=== PATIENT | female | born 1970 | race Caucasian/White ===

== ENCOUNTER 2017-05-14 07:14 | Emergency (ER) | payer OTHER ==
[~2017-05-14] VITALS: Ht 157.5 cm; Wt 105.2 kg
[~2017-05-14 07:14] MED LIST: ALBI30PE; ALP5 PO; ALPR-429 PO; AMIT-106 PO; ASPI1TAB35 PO; AZI250 PO; BACL-1 PO; CALC-515 PO; CLON1PAT31 TD; CYCL10TA29 PO; DAR100 PO; DEXL60CA6 PO; ESOM40CA42 PO; FAMO-1 PO; GABA-490 PO; GABA-549 PO; HYDR-385 PO; HYDR12.556 PO; HYDR2TAB74 PO; HYDR473S4 PO; IBU800 PO; IBUP-1618 PO; INSU100I30 SQ; LANI SUBQ; LIS5 PO; LISI2.5T60 PO; LOR5 PO; MAX75 PO; MEP50; MEPE100T3 PO; MEPE50TA29 PO; META800T18 PO; METF-420 PO; METO5TAB75 PO; NIT4 SL; OXYC-865 PO; OXYC1TAB54 PO; PER PO; PRE10 PO; PREDNISONE; PRO25 PO; PROM-110 PO; RIZA10TA20 PO; TRA50 PO; VAL80 PO; VALS1TAB96 PO; [UNRECOGNIZED DRUG - OTHER]
--- NOTE | 2017-05-14 07:27 | ER Report ---
History and Physical Time Seen By MD: 07:26 Hx. of Stated Complaint: COUGH, SORE THROAT, BODY ACHES FOR A WEEK HPI/ROS CC: Fever, body aches, cough HPI: 47-year-old female with a past medical history muscle strain, ROS: 12 point review of systems essentially negative other than what's mentioned in history of present illness. NURSES AND OLD MEDICAL RECORDS: Reviewed PMH: Reviewed SURGICAL HX: Reviewed FAMILY HX: Noncontributory SOCIAL HX: [] VITAL SIGNS: Reviewed CONSTITUTIONAL: [] PHYSICAL EXAM: HEENT: Pupils equal round reactive to light and accommodate, EOMI, tympanic membranes pearly white umbo present with good light reflex. Lips dry mucous membranes moist gums nonbleeding uvula midline and rises equally with phonation, oropharynx noninjected, teeth intact. NECK: Neck supple, thyroid not appreciated, anterior and posterior cervical lymphadenopathy not appreciated. Trachea midline and rises equally with phonation. CARDIAC: S1-S2 regular rate rhythm no murmurs rubs or gallops. LUNGS: Lungs clear bilaterally posteriorly in all prasad. Good air movement. ABDOMEN: Abdomen soft, nondistended, bowel sounds active in all 4 quadrants, no bruits noted, no CVA tenderness. MUSCULOSKELETAL: Strength 5 out of 5 x 4 extremities, no deformities noted. NEUROLOGIC: Patient alert and oriented by 3 Allergies: Coded Allergies: albumin human (Verified Allergy, Severe, UNABLE TO FUNCTION, 05/14/17) amoxicillin (Verified Allergy, Severe, HIVES, THROAT SWELLING, 05/14/17) interferon beta-1a (Verified Allergy, Severe, UNABLE TO FUNCTION, 05/14/17) codeine (Verified Allergy, Intermediate, MIGRAINE, 05/14/17) glatiramer (copolymer 1) (Verified Allergy, Intermediate, RASH, 05/14/17) hydrocodone (Verified Allergy, Intermediate, HEADACHE, 05/14/17) Uncoded Allergies: STEROIDS (Allergy, Severe, CHEST PAIN, 06/01/08) Home Meds Active Scripts Ipratropium/Albuterol Sulfate (COMBIVENT RESPIMAT INHAL SPRAY) 4 Gm Aer.w.adap, 1 EACH IH QID, #1 INSERT Prov:ANDREA TAYLOR MD 05/14/17 Levofloxacin 750 Mg Tab (LEVAQUIN 750 MG TAB) 750 Mg Tablet, 750 MG PO QDAY for 10 Days, TAB Prov:ANDREA TAYLOR MD 05/14/17 Oxycodone Hcl/Acetaminophen (PERCOCET 5-325 MG TABLET) 1 Each Tablet, 1 EACH PO Q6-8H, #14 Prov:YUKO HUANG DO 06/21/15 Reported Medications Insulin Glargine,Hum.rec.anlog (LANTUS SOLOSTAR) 100 Unit/1 Ml Insuln.pen, 35 UNITS SQ DAILY, #15 12/30/15 Lisinopril (LISINOPRIL) 2.5 Mg Tablet, 2.5 MG PO QDAY 06/21/15 Hydrochlorothiazide (HYDROCHLOROTHIAZIDE) 12.5 Mg Capsule, 1 TAB PO QDAY, CAPSULE 06/21/15 Insulin Glargine (LANTUS) 100 Unit/Ml Soln, 35 UNIT SUBQ DAILY 04/02/14 Dexlansoprazole (DEXILANT) 60 Mg Stuart., 60 MG PO DAILY 01/31/14 Baclofen (BACLOFEN) 10 Mg Tablet, 10 MG PO TID, #30 TAB 01/17/14 Discontinued Scripts Oxycodone Hcl/Acetaminophen (PERCOCET 5-325 MG TABLET) 1 Each Tablet, 1 EACH PO Q4-6H Y for PAIN, #20 TAB Prov:VIOLET STEWART 04/13/16 Hx Smoking: No Smoking Status: Never Smoker Exposure to Second Hand Smoke?: No Hx Substance Use Disorder: No Hx Alcohol Use: No Constitutional Vital Sign - Last 24 Hours 05/14/17 05/14/17 05/14/17 05/14/17 07:19 07:30 07:45 07:48 Temp 97.7 Pulse 106 108 95 97 Resp 18 16 B/P (MAP) 224/160 209/130 (156) Pulse Ox 94 94 96 O2 Delivery Room Air 05/14/17 05/14/17 05/14/17 05/14/17 07:48 07:55 08:00 08:15 Pulse 98 86 Resp 16 B/P (MAP) 185/114 (137) 178/108 (131) Pulse Ox 95 94 93 O2 Delivery Room Air 05/14/17 05/14/17 05/14/17 05/14/17 08:38 08:45 09:00 09:13 Pulse 95 80 Resp 20 14 B/P (MAP) 194/100 (131) 186/109 (134) 180/108 (132) 169/109 (129) Pulse Ox 95 96 05/14/17 05/14/17 09:15 09:30 Pulse 79 71 Resp 9 9 B/P (MAP) 161/99 (119) 175/131 (146) Pulse Ox 92 91 Medical Decision Making Data Points Result Diagram: 05/14/17 0756 05/14/17 0756 Laboratory Hematology Test 05/14/17 07:21 05/14/17 07:56 05/14/17 08:39 Influenza Type A Antigen Negative (NEGATIVE) Influenza Type B Antigen Negative (NEGATIVE) Group A Streptococcus Screen Negative (NEGATIVE) Red Blood Count 5.50 M/uL (4.17-5.56) Mean Corpuscular Volume 83.5 fL (80.0-96.0) Mean Corpuscular Hemoglobin 29.8 pg (26.0-33.0) Mean Corpuscular Hemoglobin Concent 35.6 g/dL (32.0-36.0) Red Cell Distribution Width 12.1 % (11.5-14.5) Mean Platelet Volume 7.4 fL (7.2-11.1) Neutrophils (%) (Auto) 55.5 % (39.4-72.5) Lymphocytes (%) (Auto) 31.7 % (17.6-49.6) Monocytes (%) (Auto) 6.3 % (4.1-12.4) Eosinophils (%) (Auto) 6.1 % (0.4-6.7) Basophils (%) (Auto) 0.4 % (0.3-1.4) Nucleated RBC Relative Count (auto) 0.2 /100WBC Neutrophils # (Auto) 3.5 K/uL (2.0-7.4) Lymphocytes # (Auto) 2.0 K/uL (1.3-3.6) Monocytes # (Auto) 0.4 K/uL (0.3-1.0) Eosinophils # (Auto) 0.4 K/uL (0.0-0.5) Basophils # (Auto) 0.0 K/uL (0.0-0.1) Nucleated RBC Absolute Count (auto) 0.02 K/uL Erythrocyte Sedimentation Rate 12 mm/HOUR (0-20) Sodium Level 138 mmol/L (137-145) Potassium Level 4.1 mmol/L (3.5-5.0) Chloride Level 103 mmol/L (98-107) Carbon Dioxide Level 25 mmol/L (22-31) Blood Urea Nitrogen 10 mg/dl (7-18) Creatinine 0.60 mg/dl (0.52-1.04) Glomerular Filtration Rate Calc > 60.0 Random Glucose 202 mg/dl (75-110) Calcium Level 9.1 mg/dl (8.4-10.2) Total Bilirubin 1.2 mg/dl (0.2-1.3) Aspartate Amino Transf (AST/SGOT) 29 U/L (0-35) Alanine Aminotransferase (ALT/SGPT) 52 U/L (0-56) Alkaline Phosphatase 130 U/L (0-126) C-Reactive Protein 0.6 mg/dl (<1.0) B-Type Natriuretic Peptide 52 pg/ml (0-100) Total Protein 7.4 gm/dl (6.3-8.2) Albumin 3.9 g/dl (3.5-5.0) Urine Color Straw Urine Clarity Clear Urine pH 5.0 pH (4.8-9.5) Urine Specific [place] 1.005 Urine Protein Negative mg/dL (NEGATIVE) Urine Glucose (UA) 50 mg/dL (NEGATIVE) Urine Ketones Negative mg/dL (NEGATIVE) Urine Blood Negative (NEGATIVE) Urine Nitrite Negative (NEGATIVE) Urine Bilirubin Negative (NEGATIVE) Urine Urobilinogen Negative mg/dL (0.2-1.9) Urine Leukocyte Esterase Negative (NEGATIVE) Urine RBC None /HPF (0-2/HPF) Urine WBC <1 /HPF (0-5/HPF) Urine Squamous Epithelial Cells Many /LPF (</=FEW) Urine Bacteria Few /HPF (NONE-FEW) Urine Mucus None /HPF (NONE-FEW) Urine HCG, Qualitative Negative (NEGATIVE) Chemistry Test 05/14/17 07:21 05/14/17 07:56 05/14/17 08:39 Influenza Type A Antigen Negative (NEGATIVE) Influenza Type B Antigen Negative (NEGATIVE) Group A Streptococcus Screen Negative (NEGATIVE) White Blood Count 6.4 k/uL (4.5-11.0) Red Blood Count 5.50 M/uL (4.17-5.56) Hemoglobin 16.4 g/dL (12.0-16.0) Hematocrit 45.9 % (34.0-47.0) Mean Corpuscular Volume 83.5 fL (80.0-96.0) Mean Corpuscular Hemoglobin 29.8 pg (26.0-33.0) Mean Corpuscular Hemoglobin Concent 35.6 g/dL (32.0-36.0) Red Cell Distribution Width 12.1 % (11.5-14.5) Platelet Count 244 K/uL (150-450) Mean Platelet Volume 7.4 fL (7.2-11.1) Neutrophils (%) (Auto) 55.5 % (39.4-72.5) Lymphocytes (%) (Auto) 31.7 % (17.6-49.6) Monocytes (%) (Auto) 6.3 % (4.1-12.4) Eosinophils (%) (Auto) 6.1 % (0.4-6.7) Basophils (%) (Auto) 0.4 % (0.3-1.4) Nucleated RBC Relative Count (auto) 0.2 /100WBC Neutrophils # (Auto) 3.5 K/uL (2.0-7.4) Lymphocytes # (Auto) 2.0 K/uL (1.3-3.6) Monocytes # (Auto) 0.4 K/uL (0.3-1.0) Eosinophils # (Auto) 0.4 K/uL (0.0-0.5) Basophils # (Auto) 0.0 K/uL (0.0-0.1) Nucleated RBC Absolute Count (auto) 0.02 K/uL Erythrocyte Sedimentation Rate 12 mm/HOUR (0-20) Glomerular Filtration Rate Calc > 60.0 Calcium Level 9.1 mg/dl (8.4-10.2) Total Bilirubin 1.2 mg/dl (0.2-1.3) Aspartate Amino Transf (AST/SGOT) 29 U/L (0-35) Alanine Aminotransferase (ALT/SGPT) 52 U/L (0-56) Alkaline Phosphatase 130 U/L (0-126) C-Reactive Protein 0.6 mg/dl (<1.0) B-Type Natriuretic Peptide 52 pg/ml (0-100) Total Protein 7.4 gm/dl (6.3-8.2) Albumin 3.9 g/dl (3.5-5.0) Urine Color Straw Urine Clarity Clear Urine pH 5.0 pH (4.8-9.5) Urine Specific [place] 1.005 Urine Protein Negative mg/dL (NEGATIVE) Urine Glucose (UA) 50 mg/dL (NEGATIVE) Urine Ketones Negative mg/dL (NEGATIVE) Urine Blood Negative (NEGATIVE) Urine Nitrite Negative (NEGATIVE) Urine Bilirubin Negative (NEGATIVE) Urine Urobilinogen Negative mg/dL (0.2-1.9) Urine Leukocyte Esterase Negative (NEGATIVE) Urine RBC None /HPF (0-2/HPF) Urine WBC <1 /HPF (0-5/HPF) Urine Squamous Epithelial Cells Many /LPF (</=FEW) Urine Bacteria Few /HPF (NONE-FEW) Urine Mucus None /HPF (NONE-FEW) Urine HCG, Qualitative Negative (NEGATIVE) Urinalysis Test 05/14/17 08:39 Urine Color Straw Urine Clarity Clear Urine pH 5.0 pH (4.8-9.5) Urine Specific [place] 1.005 Urine Protein Negative mg/dL (NEGATIVE) Urine Glucose (UA) 50 mg/dL (NEGATIVE) Urine Ketones Negative mg/dL (NEGATIVE) Urine Blood Negative (NEGATIVE) Urine Nitrite Negative (NEGATIVE) Urine Bilirubin Negative (NEGATIVE) Urine Urobilinogen Negative mg/dL (0.2-1.9) Urine Leukocyte Esterase Negative (NEGATIVE) Urine RBC None /HPF (0-2/HPF) Urine WBC <1 /HPF (0-5/HPF) Urine Squamous Epithelial Cells Many /LPF (</=FEW) Urine Bacteria Few /HPF (NONE-FEW) Urine Mucus None /HPF (NONE-FEW) Urine HCG, Qualitative Negative (NEGATIVE) Microbiology Microbiology Date/Time Source Procedure Growth Status 05/14/17 08:28 Blood Peripheral Draw Blood Culture - Preliminary NO GROWTH SO FAR, SET LATE. REINCUBATED Resulted 05/14/17 07:56 Blood Blood Culture - Preliminary NO GROWTH SO FAR, SET LATE. REINCUBATED Resulted EKG/Imaging Imaging Chest x-ray: IMPRESSION: 1. Negative chest for acute cardiopulmonary disease ED Course/Re-evaluation ED Course Patient received Decadron 10 mg by mouth. Chest x-ray did not show any infiltrates or consolidations. Patient does have a slight decrease with SaO2 on room air. Patient will be placed on Levaquin. She is diabetic and therefore I cannot place her on steroids long-term. Patient has been having bodyaches and a sinus congestion. She is allergic to penicillins and I'm afraid that doxycycline would also cause GI upset. Patient will be placed on Levaquin. Patient was hypertensive with a systolic blood pressure of greater than 220 mmHg. Patient received clonidine 0.2 mg twice. She also received lisinopril 10 mg by mouth. I discussed with her to take a blood pressure diary 3 times a day for 2 weeks and given to her PCP. She made need to increase her lisinopril and hydrochlorothiazide. She is only on 10 mg of lisinopril daily. It may be elevated secondary to her infection and therefore her blood pressure needs to be monitored over a 2 week period. Patient will plan and in agreement. Re-evaluation Medical decision-making includes but not expected to Sinusitis causing hypertension, uncontrolled hypertension, diabetes, renal artery stenosis. Decision to Disposition Date: May 14, 2017 Decision to Disposition Time: 10:04 Depart Departure Latest Vital Signs Vital Signs Date Time Temp Pulse Resp B/P (MAP) Pulse Ox O2 Delivery O2 Flow Rate FiO2 05/14/17 09:30 71 9 175/131 (146) 91 05/14/17 07:48 Room Air 05/14/17 07:19 97.7 Impression: Primary Impression: Sinusitis Additional Impression: Hypertension Condition: Improved Disposition: HOME OR SELF-CARE Referrals: MELO GUNTER (PCP) New Scripts Ipratropium/Albuterol Sulfate (COMBIVENT RESPIMAT INHAL SPRAY) 4 Gm Aer.w.adap 1 EACH IH QID, #1 INSERT Prov: ANDREA TAYLOR MD 05/14/17 Levofloxacin 750 Mg Tab (LEVAQUIN 750 MG TAB) 750 Mg Tablet 750 MG PO QDAY for 10 Days, TAB Prov: ANDREA TAYLOR MD 05/14/17 Patient Instructions: Hypertension (ED), Sinusitis (ED) Additional Instructions: You have been given Levaquin take as directed. Do not lift heavy objects while on Levaquin. He may have tendon rupture especially any Achilles tendon while on Levaquin. He has been given Combivent to use as directed. Given shown in the emergency department how to use your inhaler. Follow-up with your regular doctor for hypertension. Pressure at least twice a day at the same time for 2 weeks and recorded given it to your physician under next visit. I and the staff wanted to thank you for allowing us to take care of your needs today in the emergency department at [facility]. We have tried to answer all of your questions and concerns. Please feel free to return to the emergency department for any further concerns or unanswered questions. Problem Qualifiers Primary Impression: Sinusitis Sinusitis location: maxillary Chronicity: acute Recurrence: not specified as recurrent Qualified Codes: J01.00 - Acute maxillary sinusitis, unspecified Additional Impression: Hypertension Hypertension type: unspecified Qualified Codes: I10 - Essential (primary) hypertension ANDREA TAYLOR MD May 14, 2017 07:27
[2017-05-14] MEDS ORDERED: NS(*) 0.9% 1000 ML BAG 1,000 ML IV ONE (07:33)
[2017-05-14] MEDS ORDERED: methylPREDNIS SUCC 125 MG/2ML IVP ONE (07:35)
[2017-05-14] MEDS ORDERED: cloNIDine HCL 0.1 MG TAB PO ONE ×2 (07:35→08:50)
[2017-05-14] MEDS ORDERED: ACETAMINOPHEN 325 MG TAB PO ONE (07:35)
[2017-05-14] MEDS ORDERED: ALBUTEROL/IPRATROPIUM 3 ML NEB NEB ONE (07:35)
--- NOTE | 2017-05-14 07:59 | RADIOLOGY IMAGING REPORT ---
FACILITY: [facility] [place]IENT NAME: Velia Hoffmann : 1970 MR: [id number] V: [id number] EXAM DATE: ORDERING PHYSICIAN: ANDREA TAYLOR TECHNOLOGIST: Location: [facility] - [place] Patient: Velia Hoffmann : 1970 Visit/Account:[id number] Date of Sevice: 05/14/2017 CHEST PA AND LAT Additional pertinent History: Cough congestion COMPARISON STUDIES: none FINDINGS: Support lines and catheters: None Lungs and Pleura: Lung prasad well expanded with no infiltrates or consolidations. No parenchymal ma ss lesions are seen. There are no effusions Heart and vasculature: Negative. Amanda and Mediastinum: Negative. Bones and Chest wall: Negative. Upper Abdomen: Negative. IMPRESSION: 1. Negative chest for acute cardiopulmonary disease Report Dictated By: Donny Griffiths MD at 05/14/2017 7:54 AM Report E-Signed By: Donny Griffiths MD at 05/14/2017 7:55 AM WSN:[id number]
[2017-05-14 08:11] LABS: PLATELET COUNT, AUTOMATED 244 K/uL (150-450)
[2017-05-14] MEDS ORDERED: LISINOPRIL 10 MG TAB PO ONE (09:05)
[2017-05-14] MEDS ORDERED: LEVO750T44 PO (10:08)
[2017-05-14] MEDS ORDERED: IPRA4AER IH (10:08)
[2017-05-14 10:15] VITALS: BP 153/92
== END 2017-05-14 10:24 | disposition home or self-care (01) ==
LOC: ER 07:15
DX: J01.00 Acute maxillary sinusitis, unspecified (principal); I10 Essential (primary) hypertension
CPT/HCPCS: 36415; 71046; 81001; 81025; 83880; 85025; 85651; 86140; 87040; 87081; 87502; 87880; 94640; 96361; 96374; 99284; J2930; J7030; J7620; 82040; 82247; 82310; 82374; 82435; 82565; 82947; 84075; 84132; 84155; 84295; 84450; 84460; 84520

== ENCOUNTER → 2017-06-08 | Outpatient (CLI) | payer OTHER ==
[~2017-06-08] MED LIST changes: +IPRA4AER IH; +LEVO750T44 PO
== END ==
LOC: LAB 13:23
PROVIDERS: ATTEND Nurse Practitioner Family
DX: R07.0 Pain in throat (principal); Z20.828 Contact with and (suspected) exposure to other viral communicable diseases
CPT/HCPCS: 87081; 87502; 87880

== ENCOUNTER → 2017-07-29 | Outpatient (CLI) | payer OTHER ==
--- NOTE | 2017-07-29 13:30 | RADIOLOGY IMAGING REPORT ---
FACILITY: [facility] PATIENT NAME: Velia Hoffmann : 1970 MR: [id number] V: [id number] EXAM DATE: ORDERING PHYSICIAN: MELO GUNTER TECHNOLOGIST: Location: [facility] - [place] Patient: Velia Hoffmann : 1970 Visit/Account:[id number] Date of Sevice: 07/29/2017 HIP RIGHT Indication: Hip pain. Comparison: None available Findings: Frontal view of the pelvis and a frog-leg lateral view of the right hip are obtained. No acute fracture or dislocation seen at the right hip. The right hip joint space is maintained. Pubi c symphysis and sacroiliac joints are normally aligned. Frontal view of the left hip is also unremark able. IMPRESSION: 1. Normal right hip. Report Dictated By: Anson Larson at 07/29/2017 1:25 PM Report E-Signed By: Anson Larson at 07/29/2017 1:27 PM WSN:[id number]
== END ==
LOC: RAD 11:52
PROVIDERS: ATTEND Nurse Practitioner Family
DX: S79.911A Unspecified injury of right hip, initial encounter (principal)

== ENCOUNTER → 2017-07-29 | Outpatient (CLI) | payer OTHER ==
[2017-07-29 12:16] LABS: PLATELET COUNT, AUTOMATED 314 K/uL (150-450)
== END ==
LOC: LAB 11:55
PROVIDERS: ATTEND Nurse Practitioner Family
DX: R21 Rash and other nonspecific skin eruption (principal); E11.9 Type 2 diabetes mellitus without complications; K31.84 Gastroparesis; M25.50 Pain in unspecified joint; G35 Multiple sclerosis; E55.9 Vitamin D deficiency, unspecified
CPT/HCPCS: 36415; 82040; 82247; 82306; 82310; 82374; 82435; 82565; 82947; 83036; 84075; 84132; 84155; 84295; 84450; 84460; 84520; 85025; 85651; 86038; 86430

== ENCOUNTER → 2017-08-11 | Outpatient (CLI) | payer OTHER ==
--- NOTE | 2017-08-11 11:47 | RADIOLOGY IMAGING REPORT ---
FACILITY: [facility] - [place] PATIENT NAME: Velia Hoffmann : 1970 MR: [id number] V: [id number] EXAM DATE: ORDERING PHYSICIAN: MELO GUNTER TECHNOLOGIST: Location: [facility] Patient: Velia Hoffmann : 1970 Visit/Account:[id number] Date of Sevice: 08/11/2017 HIP RIGHT W/O CONTRAST HISTORY: Hip pain COMPARISON: None TECHNIQUE: Multiplanar/multisequence was obtained through the right hip without contrast. CONTRAST: None FINDINGS: Right hip: Joint space: Normal Bone marrow: Normal Labrum: Small [id number] images are limited. No evidence of a displaced labral tear or paralabral cyst. Effusion: None Other findings: None significant Limited images of the left hip: Joint space: Normal Bone marrow: Normal Effusion: None Other findings: None significant Bony pelvis: Normal Pubic symphysis and SI joints: Normal Myotendinous structures: Normal Soft tissues: Normal Intrapelvic and lower abdominal findings: None significant Visualized spine: Normal Other findings: None significant IMPRESSION: 1. Right hip small [id number] images are limited. No displaced labral tear or paralabral cyst. Report Dictated By: Bartolo Barone MD at 08/11/2017 11:37 AM Report E-Signed By: Bartolo Barone MD at 08/11/2017 11:43 AM WSN:[id number]
== END ==
LOC: MRI 07:23
PROVIDERS: ATTEND Nurse Practitioner Family
DX: S79.911D Unspecified injury of right hip, subsequent encounter (principal)

== ENCOUNTER → 2018-06-06 | Outpatient (CLI) | payer SELFPAY ==
[~2018-06-06] MED LIST changes: -ALBI30PE; +ALBI30PE3; -METF-420 PO; +METF-452 PO
--- NOTE | 2018-06-06 13:09 | EKG ---
FAC[place] [facility] [place]IENT NAME: REKHA ALONSO : [id number] MR: [id number] V: [id number] EXAM DATE: ORDERING PHYSICIAN: MELO GUNTER TECHNOLOGIST: BARRY Test Reason : I10, R00.0 Blood Pressure : / mmHG Vent. Rate : 100 BPM Atrial Rate : 100 BPM P-R Int : 152 ms QRS Dur : 092 ms QT Int : 372 ms P-R-T Axes : 069 001 053 degrees QTc Int : 479 ms Normal sinus rhythm Low voltage QRS Possible Lateral infarct , age undetermined Possible Inferior infarct , age undetermined Abnormal ECG When compared with ECG of 13-APR-2016 13:40, Borderline criteria for Inferior infarct are now present Confirmed by FAWAD MARIN ([id number]) on 06/06/2018 1:12:05 PM Referred By: LYRIC Confirmed By:FAWAD MARIN
== END ==
LOC: RESP 12:48
PROVIDERS: ATTEND Nurse Practitioner Family
DX: R94.31 Abnormal electrocardiogram [ECG] [EKG] (principal)
CPT/HCPCS: 93005